=== PATIENT | female | born 1990 | race Caucasian/White ===

== ENCOUNTER 2018-06-10 17:19 | Emergency (ER) | payer OTHER ==
[~2018-06-10] VITALS: Ht 152.4 cm; Wt 81.6 kg
--- OUTSIDE RECORDS SUMMARY | 2018-06-10 17:21 | XMS REPORT ---
[facility] [place] Address Unknown Phone Unavailable Care Team Providers Care Order Tracer Name Role Phone Unavailable Unavailable Payers Payer Name Policy Type Policy Number Effective Date Expiration Date Problems This patient has no known problems. Allergies, Adverse Reactions, Alerts Allergy Name Allergy Type Status Severity Reaction(s) Onset Date Inactive Date Treating Clinician Comments No Known Allergies DA Active U 2016-04-10 00:00:00 Medications This patient has no known medications. Encounters Start Date/Time End Date/Time Encounter Type Admission Type Attending [facility] Facility Care Department Encounter ID 2016-10-26 00:00:00 2016-10-26 00:00:00 Outpatient [facility] [id number] 2016-10-23 00:00:00 2016-10-23 00:00:00 Outpatient [facility] [id number] 2016-10-19 00:00:00 2016-10-19 00:00:00 Outpatient [facility] [id number] 2016-10-12 13:17:10 2016-10-12 13:17:10 Outpatient [facility] [id number] 2016-09-21 08:37:57 2016-09-21 08:37:57 Outpatient [facility] [id number] 2016-09-21 08:29:34 2016-09-21 08:29:34 Outpatient [facility] [id number] 2016-09-18 13:35:02 2016-09-18 13:35:02 Outpatient [facility] [id number] 2016-08-03 12:12:15 2016-08-03 12:12:15 Outpatient [facility] [id number] Results Test Description Test Time Test Comments Text Results Atomic Results Result Comments - XR FINGER(S) 2+V LT 2018-05-08 19:38:00 FAX: Joby Green [phone] [place]: St: PRE Name: TEDDY VILLASENOR [facility] : 1990 Age/S: 27/F [address] Unit #: [id number] Loc: [place] Mirza[place]E rodríguez [id number] Phys: Joby Green NP Acct: [id number] Dis Date: Status: PRE ER PHONE #: [phone] Exam Date: 05/08/20181926 FAX #: [phone] Reason: FINGER PAIN EXAMS: CPT CODE: [id number] XR FINGER(S) 2+[place] [address] REASON FOR EXAM: FINGER PAIN EXAM ORDER DATE: 05/08/2018 7:15 PM Ordering Bret: Joby Green NP PROCEDURE: - XR FINGER(S) 2+V LT FINDINGS: 3 views of the left 5th digit were obtained. The osseous structures are unremarkable in size and shape. The joint spaces are maintained. No evidence of fracture. IMPRESSION: Unremarkable left 5th digit at 1938 Reported and signed by: Carlos Hector M.D. CC: Joby Green NP Technologist: RT Kacie(R Trnscrd Date/Time/By: 05/08/2018 (1937) : By: MeganL Orig Print D/T: S: 05/08/2018 (1940) PAGE 1 Signed Report
[2018-06-10] MEDS ORDERED: DEXAMETHASONE SOD PHOS 10 MG/1 ML VIAL IM ONE (17:45)
[2018-06-10] MEDS ORDERED: METHYLPREDNISOLONE SOD SUCC 125 MG/2ML VIAL IM ONE (17:45)
[2018-06-10] MEDS ORDERED: ALBUTEROL/IPRATROPIUM 3 ML NEB NEB SCH (19:00)
--- NOTE | 2018-06-10 19:22 | Diagnostic Imaging Report ---
EXAMINATION: PA and lateral views of the chest. COMPARISON: None CLINICAL HISTORY: Cough, shortness of breath DISCUSSION: Lines/tubes: None. Lungs: The lungs are well inflated and clear. No pneumonia or pulmonary edema. Pleura: No pleural effusion or pneumothorax. Heart and mediastinum: The cardiomediastinal silhouette is normal. Bones and soft tissues: No acute bony abnormalities. IMPRESSION: No acute cardiopulmonary abnormalities. Signed by: Dr. Dwight Beckford M.D. on 06/10/2018 7:19 PM
--- NOTE | 2018-06-10 22:19 | NUR ---
NO ANSWER FROM [facility]
--- NOTE | 2018-06-10 22:55 | NUR ---
NO ANSWER AT 0345
== END 2018-06-10 22:56 | disposition left against medical advice (07) ==
LOC: ER 17:19
DX: R06.09 Other forms of dyspnea (principal); J45.40 Moderate persistent asthma, uncomplicated
CPT/HCPCS: 71046

== ENCOUNTER 2021-01-12 04:16 | Emergency (ER) | payer SELFPAY ==
[~2021-01-12] VITALS: Ht 180.3 cm; Wt 81.6 kg
[2021-01-12] MEDS ORDERED: KETOROLAC TROMETHAMINE 60 MG/2 ML VIAL IM ONE (05:15)
[2021-01-12] MEDS ORDERED: KETOROLAC TROMETHAMINE 60 MG/2 ML VIAL ONE (05:41)
[2021-01-12] MEDS ORDERED: FIORICET 50-301 EACH PO (06:12)
== END 2021-01-12 06:33 | disposition home or self-care (01) ==
LOC: FSED 04:42
DX: R51.9 Headache, unspecified (principal); J45.909 Unspecified asthma, uncomplicated; F41.9 Anxiety disorder, unspecified; F17.210 Nicotine dependence, cigarettes, uncomplicated
CPT/HCPCS: 70450; 99283; J1885

== ENCOUNTER 2021-07-03 16:54 | Emergency (ER) | payer OTHER ==
[~2021-07-03] VITALS: Ht 149.9 cm; Wt 102.6 kg
[~2021-07-03 16:54] MED LIST: FIORICET 50-301 EACH PO
[2021-07-03] MEDS ORDERED: birth control (17:17)
[2021-07-03] MEDS ORDERED: OFLOXACIN5 ML LEFT EAR (17:30)
== END 2021-07-03 17:44 | disposition home or self-care (01) ==
LOC: FSED 17:28
DX: S00.412A Abrasion of left ear, initial encounter (principal); X58.XXXA Exposure to other specified factors, initial encounter; Y92.098 Other place in other non-institutional residence as the place of occurrence of the external cause; F17.210 Nicotine dependence, cigarettes, uncomplicated
CPT/HCPCS: 99282

== ENCOUNTER 2022-08-03 21:13 | Emergency (ER) | payer OTHER ==
[~2022-08-03] VITALS: Ht 149.9 cm; Wt 109.3 kg
[~2022-08-03 21:13] MED LIST changes: +OFLOXACIN5 ML LEFT EAR; +birth control
[2022-08-03] MEDS ORDERED: TRAMADOL HCL 50 MG TAB PO STA (21:29)
[2022-08-03] MEDS ORDERED: TRAMADOL HCL 50 MG TAB ONE (21:41)
[2022-08-03] MEDS ORDERED: ULTRAM 50MG50 MG PO (21:52)
[2022-08-03 22:02] VITALS: BP 140/88; PULSE 71; RESP 18; TEMP 98; O2SAT 100
== END 2022-08-03 22:02 | disposition home or self-care (01) ==
LOC: FSED 21:17
DX: S63.681A Other sprain of right thumb, initial encounter (principal); X50.1XXA Overexertion from prolonged static or awkward postures, initial encounter; Y92.89 Other specified places as the place of occurrence of the external cause; F41.9 Anxiety disorder, unspecified; F17.210 Nicotine dependence, cigarettes, uncomplicated
CPT/HCPCS: 99283